=== PATIENT | male | born 1960 | race Caucasian/White ===

== ENCOUNTER 2016-07-25 17:17 | Emergency (ER) | payer OTHER ==
[~2016-07-25] VITALS: Ht 188 cm; Wt 77.0 kg
[~2016-07-25 17:17] MED LIST: ATARAX,VISTARIL25 MG PO; COGENTIN2 MG PO; CONGENTIN; DESYREL 150 MG150 MG PO; IBUPROFEN600 MG PO; KLONOPIN0.5 M1 PO; KLONOPIN0.5 MG PO; KLONOPIN1 M1 PO; LITHIUM CARBON300 MG NG; LITHIUM CARBON300 MG PO; LITHIUM CARBON600 MG PO; MOBIC15 MG PO; PERCOCET 5/31 TABLET PO; PREDNISONE50 MG PO; PROLIXIN2.5 MG PO; TRAZODONE HCL150 MG PO; ZITHROMAX Z-PA250 MG PO; [UNRECOGNIZED DRUG - OTHER]
[2016-07-25 17:58] LABS: HEMATOCRIT 39.4 % (38.0-50.0); MCH 31.3 PG (29.0-34.0); MCV 94.7 FL (86-99); MEAN PLAT.VOLUME 10.5 uM^3 (9.0-12.4); PLATELET COUNT 175 K/uL (156-360); RBC DIS.WIDTH-CV 12.8 % (11.8-14.6); RBC DIS.WIDTH-SD 44.5 % (39-53); RED BLOOD COUNT 4.16 M/uL (4.00-5.50); WHITE BLOOD COUNT 17.7 K/uL (4.1-10.2)
[2016-07-25 18:05] LABS: CHLORIDE 101 mEq/L (99-109); SODIUM 131 mEq/L (136-147)
[2016-07-25 18:07] LABS: GLUCOSE 120 mg/dL (70-99)
[2016-07-25 18:08] LABS: ANION GAP 11 MEQ/L (2-14)
[2016-07-25 18:11] LABS: GFR ESTIMATE (CALCULATED) > 59 mL/min/
[2016-07-25 18:12] LABS: UREA NITROGEN (BUN) 12 mg/dL (9-23)
[2016-07-25 20:32] VITALS: BP 122/82
== END 2016-07-25 20:33 | disposition home or self-care (01) ==
LOC: EME 17:17
PROVIDERS: Emergency Medicine
DX: T43.595A Adverse effect of other antipsychotics and neuroleptics, initial encounter (principal); R25.8 Other abnormal involuntary movements; R68.89 Other general symptoms and signs; F20.9 Schizophrenia, unspecified; F31.9 Bipolar disorder, unspecified; J45.909 Unspecified asthma, uncomplicated; R56.9 Unspecified convulsions; F17.200 Nicotine dependence, unspecified, uncomplicated
CPT/HCPCS: 80048; 80178; 85027; 99281; 99284

== ENCOUNTER 2016-07-31 21:20 | Inpatient (IN) | payer OTHER ==
[~2016-07-31] VITALS: Ht 188 cm; Wt 78.1 kg
[2016-07-31 22:17] LABS: HEMATOCRIT 37.5 % (38.0-50.0); MCH 30.9 PG (29.0-34.0); MCHC 33.3 G/DL (30.0-36.0); MCV 92.8 FL (86-99); MEAN PLAT.VOLUME 10.4 uM^3 (9.0-12.4); PLATELET COUNT 182 K/uL (156-360); RBC DIS.WIDTH-CV 13.2 % (11.8-14.6); RBC DIS.WIDTH-SD 44.2 % (39-53); RED BLOOD COUNT 4.04 M/uL (4.00-5.50); WHITE BLOOD COUNT 16.9 K/uL (4.1-10.2)
[2016-07-31 22:30] LABS: INTER. NORMALIZED RATIO 1.2; PTT 28.5 (25-32)
[2016-07-31 22:36] LABS: CHLORIDE 106 mEq/L (99-109); POTASSIUM 3.8 mEq/L (3.7-5.4); SODIUM 136 mEq/L (136-147)
[2016-07-31 22:38] LABS: GLUCOSE 113 mg/dL (70-99)
[2016-07-31 22:39] LABS: ANION GAP 11 MEQ/L (2-14)
[2016-07-31 22:40] LABS: TOTAL BILIRUBIN 0.8 mg/dL (0.0-1.0)
[2016-07-31 22:42] LABS: ALKALINE PHOSPHATASE 260 IU/L (3-129); GFR ESTIMATE (CALCULATED) > 59 mL/min/
[2016-07-31 22:43] LABS: UREA NITROGEN (BUN) 11 mg/dL (9-23)
[2016-07-31 22:45] LABS: ADD MIUA? NO; BILIRUBIN NEGATIVE; BLOOD NEGATIVE; COLOR STRAW ((YELLOW)); GLUCOSE (STRIP) NEGATIVE; KETONES NEGATIVE; LEUKOCYTES NEGATIVE; NITRITE NEGATIVE; PROTEIN (STRIP) NEGATIVE; SPECIFIC GRAVITY 1.003 (1.000-1.030); UCUL ADDED? NO; UROBILINOGEN 0.2 MG/DL (0.2-1.0)
[2016-07-31 22:45] LABS: LIPASE 20 U/L (1.0-51.0)
[2016-07-31 22:46] LABS: TROP-I INTERPRETATION NEGATIVE; TROPONIN-I < 0.01 ng/mL (0.0-0.30)
[2016-08-01 02:02] VITALS: BP 125/72
[2016-08-01 07:32] VITALS: BP 100/67
[2016-08-01] MEDS ORDERED: COGENTIN2 MG PO (09:55)
[2016-08-01] MEDS ORDERED: KLONOPIN0.5 M1 PO (09:56)
[2016-08-01] MEDS ORDERED: LITHIUM CARBON300 MG PO (09:56)
[2016-08-01] MEDS ORDERED: FLUPHENAZINE HCL5 MG PO (09:56)
[2016-08-01] MEDS ORDERED: DESYREL 150 MG150 MG PO (09:57)
[2016-08-01] MEDS ORDERED: ADVIL200 MG PO (09:57)
[2016-08-01 15:22] VITALS: BP 116/79
[2016-08-01 23:24] VITALS: BP 120/64
[2016-08-02 08:38] VITALS: BP 117/69
[2016-08-03] VITALS: BP 114/70
[2016-08-03 07:12] LABS: MCH 30.4 PG (29.0-34.0); MCHC 31.6 G/DL (30.0-36.0); MCV 96.2 FL (86-99); MEAN PLAT.VOLUME 10.9 uM^3 (9.0-12.4); PLATELET COUNT 174 K/uL (156-360); RBC DIS.WIDTH-CV 13.8 % (11.8-14.6); RBC DIS.WIDTH-SD 47.7 % (39-53); RED BLOOD COUNT 3.95 M/uL (4.00-5.50); WHITE BLOOD COUNT 16.7 K/uL (4.1-10.2)
[2016-08-03 07:45] VITALS: BP 125/83
[2016-08-03 09:52] VITALS: BP 128/94
[2016-08-03 11:40] VITALS: BP 122/71
[2016-08-03 15:53] VITALS: BP 116/63
[2016-08-03 22:28] VITALS: BP 133/82
[2016-08-04 06:29] LABS: EOSINOPHIL (%) 0.9 % (0-5); EOSINOPHIL COUNT 0.2 K/uL (0-0.3); HEMATOCRIT 39.2 % (38.0-50.0); IMMATURE GRANULOCYTE (%) 0.7 % (0.0-0.7); IMMATURE GRANULOCYTE COUNT 0.1 K/uL; INSTRUMENT ABS NEUTROPHIL CT 15.4 K/uL; MCH 30.5 PG (29.0-34.0); MCHC 31.6 G/DL (30.0-36.0); MCV 96.6 FL (86-99); MONOCYTE (%) 7.9 % (3-12); MONOCYTE COUNT 1.4 K/uL (0-0.8); NEUTROPHIL (%) 84.9 % (45-76); NEUTROPHIL COUNT 15.4 K/uL (1.8-6.4); PLATELET COUNT 169 K/uL (156-360); RBC DIS.WIDTH-CV 14.2 % (11.8-14.6); RBC DIS.WIDTH-SD 49.3 % (39-53); RED BLOOD COUNT 4.06 M/uL (4.00-5.50); WHITE BLOOD COUNT 18.1 K/uL (4.1-10.2)
[2016-08-04 06:50] LABS: ANION GAP 9 MEQ/L (2-14); CHLORIDE 107 MEQ/L (99-109); GFR ESTIMATE (CALCULATED) > 59 mL/min/; GLUCOSE 103 mg/dL (70-99); POTASSIUM 4.1 MEQ/L (3.7-5.4); SAMPLE HEMOLYSIS CHECK 0; SAMPLE ICTERIC CHECK 0; SAMPLE LIPEMIA CHECK 0; SODIUM 141 MEQ/L (136-147); UREA NITROGEN (BUN) 10 mg/dL (9-23)
[2016-08-04 07:38] VITALS: BP 126/82
[2016-08-04 16:49] VITALS: BP 130/70
[2016-08-04 22:57] VITALS: BP 112/65
[2016-08-05 07:45] VITALS: BP 132/94
[2016-08-05 10:21] VITALS: BP 110/72
[2016-08-05] MEDS ORDERED: PANTOPRAZOLE SO40 MG PO (12:51)
[2016-08-05] MEDS ORDERED: FLUCONAZOLE100 MG PO (12:51)
[2016-08-05] MEDS ORDERED: ULTRAM50 MG PO (12:51)
[2016-08-05] MEDS ORDERED: ZOFRAN4 MG PO (12:52)
[2016-08-05 16:38] VITALS: BP 120/83
== END 2016-08-05 18:35 | disposition home health service (06) | DRG 375 ==
LOC: EME → EDBD 21:20 → 5EAST 23:36 → EDOF 23:36 → 5EAST 23:36
PROVIDERS: Emergency Medicine; Internal Medicine; Specialist
PROC: 0DB38ZX Excision of Lower Esophagus, Via Natural or Artificial Opening Endoscopic, Diagnostic (ICD-10-PCS; principal; 2016-08-02)
DX: C15.5 Malignant neoplasm of lower third of esophagus (principal); C78.7 Secondary malignant neoplasm of liver and intrahepatic bile duct; C78.00 Secondary malignant neoplasm of unspecified lung; B37.81 Candidal esophagitis; F25.9 Schizoaffective disorder, unspecified; F17.210 Nicotine dependence, cigarettes, uncomplicated; J44.9 Chronic obstructive pulmonary disease, unspecified; K44.9 Diaphragmatic hernia without obstruction or gangrene; K29.70 Gastritis, unspecified, without bleeding
CPT/HCPCS: 74177; 80048; 80053; 80178; 81003; 82378; 83605; 83690; 84484; 85025; 85027; 85610; 85730; 88305; 93005; 99281; 99285; J2270; J2405; J7030

== ENCOUNTER 2016-08-08 22:41 | Emergency (ER) | payer OTHER ==
[~2016-08-08] VITALS: Ht 188 cm; Wt 79.0 kg
[~2016-08-08 22:41] MED LIST changes: +ADVIL200 MG PO; +FLUCONAZOLE100 MG PO; +FLUPHENAZINE HCL5 MG PO; +PANTOPRAZOLE SO40 MG PO; +ULTRAM50 MG PO; +ZOFRAN4 MG PO
[2016-08-09 00:09] LABS: HEMATOCRIT 39.4 % (38.0-50.0); MCH 30.5 PG (29.0-34.0); MCV 92.5 FL (86-99); MEAN PLAT.VOLUME 11.5 uM^3 (9.0-12.4); PLATELET COUNT 158 K/uL (156-360); RBC DIS.WIDTH-CV 14.5 % (11.8-14.6); RBC DIS.WIDTH-SD 47.8 % (39-53); RED BLOOD COUNT 4.26 M/uL (4.00-5.50); WHITE BLOOD COUNT 20.5 K/uL (4.1-10.2)
[2016-08-09 00:13] LABS: CHLORIDE 104 mEq/L (99-109); POTASSIUM 4.1 mEq/L (3.7-5.4); SODIUM 134 mEq/L (136-147)
[2016-08-09 00:15] LABS: GLUCOSE 104 mg/dL (70-99)
[2016-08-09 00:16] LABS: ANION GAP 13 MEQ/L (2-14)
[2016-08-09 00:19] LABS: GFR ESTIMATE (CALCULATED) > 59 mL/min/
[2016-08-09 00:22] LABS: UREA NITROGEN (BUN) 22 mg/dL (9-23)
[2016-08-09 01:49] VITALS: BP 106/89
== END 2016-08-09 01:50 | disposition home or self-care (01) ==
LOC: EME 22:41
DX: R10.30 Lower abdominal pain, unspecified (principal); R19.7 Diarrhea, unspecified; J45.909 Unspecified asthma, uncomplicated; F31.9 Bipolar disorder, unspecified; R56.9 Unspecified convulsions; F17.200 Nicotine dependence, unspecified, uncomplicated
CPT/HCPCS: 80048; 81003; 85027; 99281; 99284

== ENCOUNTER 2016-08-15 10:10 | Inpatient (IN) | payer OTHER ==
[~2016-08-15] VITALS: Ht 188 cm; Wt 76.0 kg
[2016-08-15 11:01] LABS: EOSINOPHIL (%) 0.2 % (0-5); EOSINOPHIL COUNT 0.1 K/uL (0-0.3); HEMATOCRIT 44.9 % (38.0-50.0); IMMATURE GRANULOCYTE (%) 1.3 % (0.0-0.7); IMMATURE GRANULOCYTE COUNT 0.3 K/uL; INSTRUMENT ABS NEUTROPHIL CT 22.3 K/uL; LYMPHOCYTE COUNT 1.2 K/uL (1.0-2.8); MCH 31.1 PG (29.0-34.0); MCHC 33.4 G/DL (30.0-36.0); MCV 93.2 FL (86-99); MONOCYTE COUNT 1.3 K/uL (0-0.8); NEUTROPHIL (%) 88.6 % (45-76); NEUTROPHIL COUNT 22.3 K/uL (1.8-6.4); NRBC (%) 0.1 /100 WBC (0-0); RBC DIS.WIDTH-CV 17.9 % (11.8-14.6); RBC DIS.WIDTH-SD 56.4 % (39-53); RED BLOOD COUNT 4.82 M/uL (4.00-5.50); WHITE BLOOD COUNT 25.1 K/uL (4.1-10.2)
[2016-08-15 11:12] LABS: CHLORIDE 97 mEq/L (99-109); SODIUM 131 mEq/L (136-147)
[2016-08-15 11:14] LABS: GLUCOSE 117 mg/dL (70-99)
[2016-08-15 11:15] LABS: ANION GAP 16 MEQ/L (2-14)
[2016-08-15 11:16] LABS: TOTAL BILIRUBIN 7.3 mg/dL (0.0-1.0)
[2016-08-15 11:17] LABS: ALKALINE PHOSPHATASE 794 IU/L (3-129)
[2016-08-15 11:26] LABS: GFR ESTIMATE (CALCULATED) 37 mL/min/; UREA NITROGEN (BUN) 58 mg/dL (9-23)
[2016-08-15 11:27] LABS: POTASSIUM 5.8 mEq/L (3.7-5.4)
[2016-08-15 11:41] LABS: MEAN PLAT.VOLUME 13.2 uM^3 (9.0-12.4); PLATELET COUNT 104 K/uL (156-360)
[2016-08-15 18:30] VITALS: BP 102/58
[2016-08-15 19:00] VITALS: BP 101/69
[2016-08-15 19:38] LABS: METH RESISTANT S AUREUS PCR NEGATIVE (NEGATIVE)
[2016-08-15 19:42] LABS: PROBE CHECK PASS; SPECIMEN PROCESSING CONTROL PASS
[2016-08-15 20:00] VITALS: BP 121/79
[2016-08-15 21:00] VITALS: BP 107/76
[2016-08-15 22:00] VITALS: BP 124/68
[2016-08-15 23:00] VITALS: BP 115/73
[2016-08-16] VITALS (11 sets, daily range): BP systolic 91–146; BP diastolic 38–139
[2016-08-16 06:23] LABS: HEMATOCRIT 41.3 % (38.0-50.0); MCHC 34.1 G/DL (30.0-36.0); MCV 93.7 FL (86-99); MEAN PLAT.VOLUME 13.6 uM^3 (9.0-12.4); NRBC (%) 0.1 /100 WBC (0-0); PLATELET COUNT 89 K/uL (156-360); RBC DIS.WIDTH-CV 17.8 % (11.8-14.6); RBC DIS.WIDTH-SD 56.9 % (39-53); RED BLOOD COUNT 4.41 M/uL (4.00-5.50); WHITE BLOOD COUNT 29.8 K/uL (4.1-10.2)
[2016-08-16 06:35] LABS: CHLORIDE 100 mEq/L (99-109); SODIUM 130 mEq/L (136-147)
[2016-08-16 06:37] LABS: POTASSIUM 6.2 mEq/L (3.7-5.4)
[2016-08-16 06:38] LABS: GLUCOSE 78 mg/dL (70-99)
[2016-08-16 06:39] LABS: ANION GAP 17 MEQ/L (2-14); TOTAL BILIRUBIN 6.8 mg/dL (0.0-1.0)
[2016-08-16 06:41] LABS: ALKALINE PHOSPHATASE 782 IU/L (3-129); GFR ESTIMATE (CALCULATED) 32 mL/min/
[2016-08-16 06:42] LABS: UREA NITROGEN (BUN) 63 mg/dL (9-23)
[2016-08-16 17:20] LABS: ANION GAP 12 MEQ/L (2-14); CHLORIDE 101 MEQ/L (99-109); GFR ESTIMATE (CALCULATED) 26 mL/min/; GLUCOSE 74 mg/dL (70-99); POTASSIUM 5.6 MEQ/L (3.7-5.4); SAMPLE HEMOLYSIS CHECK 0; SAMPLE ICTERIC CHECK 1; SAMPLE LIPEMIA CHECK 0; SODIUM 133 MEQ/L (136-147); UREA NITROGEN (BUN) 64 mg/dL (9-23)
[2016-08-17] VITALS: BP 94/62
[2016-08-17 04:00] VITALS: BP 109/71
[2016-08-17 07:13] LABS: EOSINOPHIL (%) 0.5 % (0-5); EOSINOPHIL COUNT 0.1 K/uL (0-0.3); IMMATURE GRANULOCYTE (%) 1.4 % (0.0-0.7); IMMATURE GRANULOCYTE COUNT 0.3 K/uL; INSTRUMENT ABS NEUTROPHIL CT 20.3 K/uL; LYMPHOCYTE COUNT 1.2 K/uL (1.0-2.8); MCH 30.9 PG (29.0-34.0); MCHC 33.5 G/DL (30.0-36.0); MCV 92.3 FL (86-99); MONOCYTE (%) 4.7 % (3-12); MONOCYTE COUNT 1.1 K/uL (0-0.8); NEUTROPHIL (%) 88.3 % (45-76); NEUTROPHIL COUNT 20.3 K/uL (1.8-6.4); NRBC (%) 0.2 /100 WBC (0-0); RBC DIS.WIDTH-CV 18.8 % (11.8-14.6); RBC DIS.WIDTH-SD 57.6 % (39-53); RED BLOOD COUNT 4.01 M/uL (4.00-5.50)
[2016-08-17 07:22] LABS: ANION GAP 12 MEQ/L (2-14); CHLORIDE 98 MEQ/L (99-109); GFR ESTIMATE (CALCULATED) 27 mL/min/; MAGNESIUM 2.3 mg/dl (1.3-2.7); SAMPLE HEMOLYSIS CHECK 0; SAMPLE ICTERIC CHECK 2; SAMPLE LIPEMIA CHECK 0; SODIUM 134 MEQ/L (136-147); UREA NITROGEN (BUN) 65 mg/dL (9-23); URIC ACID 12.8 mg/dL (3.1-9.2)
[2016-08-17 07:23] LABS: GLUCOSE 123 mg/dL (70-99); POTASSIUM 4.2 MEQ/L (3.7-5.4)
[2016-08-17 07:58] LABS: IMM.PLATELET FRACTION 15.9 (1-7); PLAT.SUFFICIENCY DECREASED
[2016-08-17 08:00] VITALS: BP 83/64
[2016-08-17 08:00] LABS: PLATELET COUNT 43 K/uL (156-360)
[2016-08-17 12:00] VITALS: BP 93/43
[2016-08-17 12:55] LABS: ADD MIUA? YES; BILIRUBIN SMALL; BLOOD MODERATE; COLOR AMBER ((YELLOW)); GLUCOSE (STRIP) NEGATIVE; KETONES NEGATIVE; LEUKOCYTES NEGATIVE; NITRITE NEGATIVE; PROTEIN (STRIP) NEGATIVE; SPECIFIC GRAVITY 1.014 (1.000-1.030)
[2016-08-17 13:26] LABS: BACTERIA NONE SEEN /HPF; EPITHELIAL CELLS RARE /HPF; GRANULAR CASTS 0-5 /LPF; MUCUS TRACE /LPF; RED BLOOD CELLS 0-5 /HPF (0-5); WHITE BLOOD CELLS 0-5 /HPF (0-5)
== END 2016-08-18 05:05 | DRG 682 ==
LOC: EME 10:10 → 4WEST 14:36 → EDOF 14:36 → 4WEST 17:53 → 5EAST 08-17 14:57
PROVIDERS: Emergency Medicine; Internal Medicine; Internal Medicine Nephrology
DX: N17.9 Acute kidney failure, unspecified (principal); C15.9 Malignant neoplasm of esophagus, unspecified; C78.7 Secondary malignant neoplasm of liver and intrahepatic bile duct; C78.02 Secondary malignant neoplasm of left lung; C78.01 Secondary malignant neoplasm of right lung; F20.9 Schizophrenia, unspecified; F31.9 Bipolar disorder, unspecified; Z51.5 Encounter for palliative care; J18.9 Pneumonia, unspecified organism; K76.7 Hepatorenal syndrome; D69.6 Thrombocytopenia, unspecified; E87.5 Hyperkalemia; K72.90 Hepatic failure, unspecified without coma; T73.0XXA Starvation, initial encounter; J21.9 Acute bronchiolitis, unspecified; F10.20 Alcohol dependence, uncomplicated; F29 Unspecified psychosis not due to a substance or known physiological condition; F41.9 Anxiety disorder, unspecified; R91.8 Other nonspecific abnormal finding of lung field; K20.9 Esophagitis, unspecified; Z68.20 Body mass index [BMI] 20.0-20.9, adult; Z74.01 Bed confinement status
CPT/HCPCS: 71010; 74176; 80048; 80048 91; 80053; 80178; 81003; 83605; 83735; 84100; 84550; 85025; 85027; 87040; 87641; 93005; 99281; 99285; J0456; J0696; J1644; J1815; J2405; J2783; J7030; J7042; J7050; J7070